=== PATIENT | male | born 1950 | race Caucasian/White ===

== ENCOUNTER 2017-11-29 17:13 | Emergency (ER) | payer MEDICARE, BC ==
[~2017-11-29] VITALS: Ht 170.2 cm; Wt 92.3 kg
[~2017-11-29 17:13] MED LIST: BACTRIM DS 8001 TAB PO; NORVASC 5MG5 MG/TAB PO; ULTRAM 50MG TAB50 MG PO; XALATAN 2.5 ML2.5 ML OP
[2017-11-29 17:15] VITALS: TEMP 97.8
[2017-11-29] MEDS ORDERED: FLOMAX 0.40.4 MG/CAP PO (17:23)
[2017-11-29] MEDS ORDERED: NORVASC 5MG5 MG/TAB PO (17:23)
[2017-11-29] MEDS ORDERED: NORCO 325 MG-51 TAB PO (18:35)
[2017-11-29] MEDS ORDERED: CRUTCHES MC (18:36)
[2017-11-29 19:05] VITALS: BP 167/74; PULSE 62
== END 2017-11-29 19:08 | disposition home or self-care (01) ==
LOC: COL.ER 17:13
DX: S82.142A Displaced bicondylar fracture of left tibia, initial encounter for closed fracture (principal); I10 Essential (primary) hypertension; W17.89XA Other fall from one level to another, initial encounter
CPT/HCPCS: J3010; L1846

== ENCOUNTER 2017-12-16 10:58 | Emergency (ER) | payer MEDICARE, BC ==
[~2017-12-16] VITALS: Ht 170.2 cm; Wt 94.1 kg
[~2017-12-16 10:58] MED LIST changes: +CRUTCHES MC; +FLOMAX 0.40.4 MG/CAP PO; +NORCO 325 MG-51 TAB PO
[2017-12-16 11:03] VITALS: TEMP 100
[2017-12-16] MEDS ORDERED: ASPIRIN 32325 MG/TAB PO (11:38)
[2017-12-16 11:48] LABS: ALANINE AMINOTRANSFERASE 30 U/L (21-72); ALKALINE PHOSPHATASE 117 U/L (50-136); ANION GAP 14 mmol/L (7-16); AST,SGOT 24 U/L (15-37); BASO # 0.1 (0.0-0.2); BASO % 0.7 % (0.0-2.0); BILIRUBIN,TOTAL 0.9 mg/dL (0.0-1.0); BLOOD UREA NITROGEN 16 mg/dL (9-20); CALCIUM 9.4 mg/dL (8.4-10.2); CARBON DIOXIDE 26 mmol/L (22-30); CHLORIDE 98 mmol/L (98-107); CREATININE, serum 0.96 mg/dL (0.66-1.25); EOS % 0.3 % (0-4.0); GLUCOSE 106 mg/dL (74-106); GRAN # 9.3 (1.4-6.5); GRAN % 78.5 % (42.2-75.2); HEMATOCRIT 39.9 % (42.0-52.0); HEMOGLOBIN 12.9 g/dl (13.5-18.0); LYMPH # 1.4 (1.2-3.4); LYMPH % 11.8 % (20.0-51.0); MEAN CELL VOLUME 86 fl (80.0-100.0); MEAN CORPUSCULAR HEMOGLOBIN 28 pg (27.0-31.0); MEAN CORPUSCULAR HGB CONC 32 g/dl (33.0-37.0); MEAN PLATELET VOLUME 9.5 fl (7.4-10.4); MONO % 8.4 % (1.7-9.3); PLATELET COUNT 430 K/mm3 (130-400); POTASSIUM 4.2 mmol/L (3.4-5.0); RED BLOOD COUNT 4.63 M/mm3 (4.20-5.60); REDCELL DISTRIBUTION WIDTH-CV 13.5 % (11.5-14.5); SODIUM 138 mmol/L (137-145); TOTAL PROTEIN 8.4 gm/dL (6.4-8.2)
[2017-12-16 12:11] LABS: TROPONIN-I < 0.012 ng/mL (0.000-0.034)
[2017-12-16] MEDS ORDERED: LEVAQUIN 750MG750 M1 PO (14:04)
[2017-12-16 15:44] VITALS: BP 145/87; PULSE 83
== END 2017-12-16 15:46 | disposition home or self-care (01) ==
LOC: COL.ER 10:58
PROVIDERS: Emergency Medicine
DX: R07.81 Pleurodynia (principal); J18.1 Lobar pneumonia, unspecified organism; I10 Essential (primary) hypertension; Z79.82 Long term (current) use of aspirin
CPT/HCPCS: A9284; J1956; J7030; Q9967